=== PATIENT | female | born 1975 | race Caucasian/White ===

== ENCOUNTER 2017-05-10 08:10 | Day surgery (SDC) | payer MEDICAID ==
[2017-05-10 08:41] VITALS: BMI 23.0
[2017-05-10 09:20] VITALS: O2SAT 100
[2017-05-10] MEDS ORDERED: Propofol 10 mg/ml Inj (20 ML) ONE (10:16)
[2017-05-10] MEDS ORDERED: Lidocaine Hydrochloride 5 ML INJ ONE (10:26)
[2017-05-10] MEDS ORDERED: Lactated Ringer's 500 ML IV SCH (10:30)
[2017-05-10 12:14] VITALS: BP 121/76; PULSE 66; RESP 12; TEMP 98
== END 2017-05-10 11:55 | disposition home or self-care (01) ==
LOC: C.ENDO 08:10
PROVIDERS: ATTEND Internal Medicine
DX: K64.8 Other hemorrhoids (principal); K62.5 Hemorrhage of anus and rectum
CPT/HCPCS: 45378; 84703; J2704; J7120